=== PATIENT | male | born 1995 | race African-American/Black ===

== ENCOUNTER 2017-04-13 14:33 | Emergency (ER) | payer MEDICAID ==
[2017-04-13 14:38] VITALS: BP 141/79
[2017-04-13] MEDS ORDERED: SULFAMETHOXAZOLE/TRIMETHOPRIM 800-160 MG TABLET PO ONE (14:50)
--- NOTE | 2017-04-13 14:52 | ER Document Report ---
HPI - HPI Patient complains to provider of: abscess Onset: Other - 5 days Onset/Duration: Worse Quality of pain: Sharp Pain Level: 4 Context: Complains of a pimple to the right buttock that he popped 5 days ago. Patient states the following day it increased in size. Complains of tenderness and swelling to right buttock area. Patient denies any fever. Patient denies any history of MRSA. Associated Symptoms: Other - Right buttock. denies: Fever Exacerbated by: Sitting, Movement Relieved by: Denies Similar symptoms previously: No Recently seen / treated by doctor: No - ROS ROS below otherwise negative: Yes Systems Reviewed and Negative: Yes All other systems reviewed and negative - CONSTITUTIONAL Constitutional: DENIES: Fever, Chills - DERM Skin Color: Normal Notes: abscess to right buttock Past Medical History - General Information source: Patient - Social History Smoking Status: Never Smoker Frequency of alcohol use: None Drug Abuse: None Occupation: none Family History: Reviewed & Not Pertinent Patient has suicidal ideation: No Patient has homicidal ideation: No Pulmonary Medical History: Reports: Hx Asthma Renal/ Medical History: Denies: Hx Peritoneal Dialysis Surgical Hx: Negative - Immunizations Immunizations up to date: Yes Hx Diphtheria, Pertussis, Tetanus Vaccination: Yes Vertical Provider Document - CONSTITUTIONAL Agree With Documented VS: Yes Exam Limitations: No Limitations General Appearance: WD/WN, No Apparent Distress - INFECTION CONTROL TRAVEL OUTSIDE OF THE [place] IN LAST 30 DAYS: No - NECK Neck: Normal Inspection - RESPIRATORY Respiratory: No Respiratory Distress O2 Sat by Pulse Oximetry: 98 - BACK Back: Normal Inspection - MUSCULOSKELETAL/EXTREMETIES Musculoskeletal/Extremeties: MAEW - NEURO Level of Consciousness: Awake, Alert, Appropriate Motor/Sensory: No Motor Deficit - DERM Integumentary: Warm, Dry, Abscess - right buttock 2 cm diameter Course - Vital Signs Vital signs: Temp Pulse Resp BP Pulse Ox 99.0 F 94 H 18 141/79 H 98 04/13/17 14:36 04/13/17 14:36 04/13/17 14:36 04/13/17 14:36 04/13/17 14:36 Procedures - Incision and Drainage Right Buttock Type: Simple Anesthetic type: 1% Lidocaine Blade size: 11 I&D procedure: Betadine prep applied Incision Method: Incision made by scalpel Amount/type of drainage: mod amount of purulent drainage Adult Front & Back picture: 1 - abscess Discharge - Discharge Clinical Impression: Abscess, Encounter for incision and drainage procedure Instructions: Trimethoprim-Sulfa ([facility]), Post Incision and Drainage, Oral Narcotic Medication ([facility]), Abscess ([facility]) Additional Instructions: Return immediately for any new or worsening symptoms Followup with your primary care provider, call tomorrow to make a followup appointment Referrals: [facility] [Provider Group] - Follow up as needed
== END 2017-04-13 15:33 | disposition home or self-care (01) ==
LOC: ER 14:33
PROC: 0H98XZZ Drainage of Buttock Skin, External Approach (ICD-10-PCS; principal; 2017-04-13)
DX: L02.31 Cutaneous abscess of buttock (principal)
CPT/HCPCS: 99283; 10060; J3490